=== PATIENT | male | born 1945 | race Asian ===

== ENCOUNTER 2020-06-23 11:14 | Inpatient (IN) | payer OTHER ==
[2020-06-23 11:20] VITALS: BMI 26.8
--- NOTE | 2020-06-23 11:52 | PDOC ---
History of Present Illness - General Chief Complaint: Pain Stated Complaint: SENT BY DOC Time Seen by Provider: 06/23/20 11:51 - History of Present Illness Initial Comments: 06/23/20 12:30 HPI 74y/o M hx of NIDDM, ESRD (peritoneal dialysis), HTN, acid reflux, presents to the ED with 1 wk of abdominal pain. Pain is intermittent sharp pain and exacerbated by bowel movements, or eating food. Pt reports he has been feeling constipated, and passed watery stool after an enema yesterday with bright red blood. He denies any fevers, chills, nausea, vomiting, dark tarry stools. PMHx: as noted above ROS: as noted SHx: Denies Etoh, IVDA, tobacco use Allergies: NKDA Propagation Worker: Dr. Jessica Corey ROS: GENERAL/CONSTITUTIONAL: No fever or chills. No weakness. HEAD, EYES, EARS, NOSE AND THROAT: No change in vision. No ear pain or discharge. No sore throat. CARDIOVASCULAR: No chest pain or shortness of breath RESPIRATORY: No cough, wheezing, or hemoptysis. GASTROINTESTINAL: No nausea, vomiting. + constipation GENITOURINARY: No dysuria, frequency, or change in urination. MUSCULOSKELETAL: No joint or muscle swelling or pain. No neck or back pain. SKIN: No rash NEUROLOGIC: No headache, vertigo, loss of consciousness, or change in strength/sensation. ENDOCRINE: No increased thirst. No abnormal weight change HEMATOLOGIC/LYMPHATIC: No anemia, easy bleeding, or history of blood clots. ALLERGIC/IMMUNOLOGIC: No hives or skin allergy. PE: GENERAL: Awake, alert, and fully oriented, in no acute distress HEAD: No signs of trauma, normocephalic, atraumatic EYES: PERRLA, EOMI, sclera anicteric, conjunctiva clear ENT: Auricles normal inspection, hearing grossly normal, nares patent, oropharynx clear without exudates. Moist mucosa NECK: Normal ROM, supple, no lymphadenopathy, JVD, or masses LUNGS: No distress, speaks full sentences, clear to auscultation bilaterally HEART: Regular rate and rhythm, normal S1 and S2, no murmurs, rubs or gallops, peripheral pulses normal and equal bilaterally. ABDOMEN: Soft, nontender, normoactive bowel sounds. No guarding, no rebound. No masses. peritoneal dialysis catheter in RLQ EXTREMITIES : Normal inspection, Normal range of motion, no edema. No clubbing or cyanosis NEUROLOGICAL: Cranial nerves II through XII grossly intact. Normal speech, no focal sensorimotor deficits SKIN: Warm, Dry, normal turgor, no rashes or lesions noted MDM DDx including but not limited to: mesenteric ischemia, diverticulitis, constipation, Workup: labs, abdomen ct, ekg, - EKG: sinus rhythm with premature atrial complexes. qtc 423, qrs 86 pr 166, HR 86 t wave inversion, v4, v5, v6, no priors for comparison. ED course meds: Re-assessment: 06/23/20 12:36 06/23/20 13:18 Past History - Medical History Allergies/Adverse Reactions: Allergies Allergy/AdvReac Type Severity Reaction Status Date / Time No Known Allergies Allergy Verified 06/23/20 11:20 COPD: No Diabetes: Yes Dialysis: Yes (PERITONEAL) GI Disorders: Yes (GASTRITIS) HTN: Yes Hypercholesterolemia: Yes - Immunization History Immunization Up to Date: Yes - Psycho-Social/Smoking History Smoking History: Never smoked Have you smoked in the past 12 months: No Information on smoking cessation initiated: No - Substance Abuse Hx (Audit-C & DAST Scrn) How often the patient has a drink containing alcohol: Never Score: In Men: 4 or > Positive; In Women: 3 or > Positive: 0 Screen Result (Pos requires Nsg. Audit-10AR): Negative In the last yr the pt used illegal drug/Rx for NonMed reason: No Score: Yes response is considered Positive: 0 Screen Result (Positive result requires Nsg. DAST-10): Negative *Physical Exam - Vital Signs Last Vital Signs Temp Pulse Resp BP Pulse Ox 97.4 F L 96 H 18 114/64 99 06/23/20 11:15 06/23/20 11:15 06/23/20 11:15 06/23/20 11:15 06/23/20 11:15 ED Treatment Course - LABORATORY CBC & Chemistry Diagram: 06/23/20 13:05 06/23/20 13:05 Discharge - Follow up/Referral Referrals: Maria Esther Talavera MD [Primary Care Provider] - - Patient Discharge Instructions - Post Discharge Activity
--- NOTE | 2020-06-23 12:50 | PDOC ---
Documentation entered by Roberto Hurst SCRIBE, acting as scribe for Alice Acuna MD. Alice Acuna MD: This documentation has been prepared by the jakeibe, Roberto Hurst SCRIBE, under my direction and personally reviewed by me in its entirety. I confirm that the documentation accurately reflects all work, treatment, procedures, and medical decision making performed by me. Attending Attestation - Resident Resident Name: Ty Garcia - ED Attending Attestation I have performed the following: I have examined & evaluated the patient, The case was reviewed & discussed with the resident, I agree w/resident's findings & plan, Exceptions are as noted - HPI HPI: 06/23/20 12:41 The patient is a 74 year old male with a significant past medical history of ESRD (on peritoneal dialysis), NIDDM, HTN, GERD and gastritis who presents to the emergency department for evaluation of abdominal pain that began one week ago. The patient described pain as intermittent, sharp, adn worsened with eating or having bowel movements. He endorses feeling constipated but had an episode of diarrhea with bright red blood yesterday after having an enema. The patient denies chest/back pain, cough, and shortness of breath. Denies fever, chills, nausea, vomiting, and/or any symptoms. Denies any other symptoms. Allergies: NKA Social Hx: None reported Surgical Hx: None reported PCP: Maria Esther Talavera MD Geriatrician: Dr. Jessica Corey - Physicial Exam PE: 06/23/20 11:57 GENERAL: Awake, alert, and fully oriented, in no acute distress HEAD: No signs of trauma EYES: PERRLA, EOMI, sclera anicteric, conjunctiva clear ENT: Auricles normal inspection, hearing grossly normal, nares patent, oropharynx clear without exudates. Moist mucosa NECK: Normal ROM, supple, no lymphadenopathy, JVD, or masses LUNGS: Breath sounds equal, clear to auscultation bilaterally. No wheezes, and no crackles HEART: Regular rate and rhythm, normal S1 and S2, no murmurs, rubs or gallops ABDOMEN: Soft, +RLQ tenderness with guarding, normoactive bowel sounds. No rebound. No masses. +Peritoneal dialysis catheter to the R mid-abdomen, no surrounding skin changes. EXTREMITIES: Normal range of motion, no edema. No clubbing or cyanosis. No cords, erythema, or tenderness NEUROLOGICAL: Cranial nerves II through XII grossly intact. Normal speech. Motor and sensation grossly intact. SKIN: Warm, Dry, normal turgor, no rashes or lesions noted. RECTAL: No external lesions, no palpable internal hemorrhoids. No stool in the vault. - Medical Decision Making 06/23/20 12:50 No signs of SBP on exam. However, given the RLQ tenderness, as well as age and multiple medical issues, will do labs, CT a/p to further evaluate. Discharge - Discharge Information Problems reviewed: Yes Clinical Impression/Diagnosis: Lactic acid blood increased Condition: Stable - Follow up/Referral - Patient Discharge Instructions - Post Discharge Activity
[2020-06-23 13:18] LABS: BASO % 1.1 % (0-2.0); EOS % 2.9 % (0-4.5); HEMATOCRIT 30.9 % (35.4-49); HEMOGLOBIN 9.8 GM/dL (11.7-16.9); LYMPH % 16.9 % (8-40); MCH 21.4 pg (25.7-33.7); MCHC 31.8 g/dl (32.0-35.9); MEAN CELL VOLUME 67.2 fl (80-96); MONO % 8.1 % (3.8-10.2); PLATELET COUNT 205 K/MM3 (134-434); RDW 16.6 % (11.9-15.9); WHITE BLOOD COUNT 7.5 K/mm3 (4.0-10.0)
[2020-06-23 13:28] LABS: INR 1.08 (0.83-1.09); PROTHROMBIN TIME (PATIENT) 12.7 SEC (9.7-13.0)
[2020-06-23 13:30] LABS: ACTIVATED PTT 28.4 SECONDS (25.2-36.5)
[2020-06-23 13:38] LABS: ALBUMIN 3.2 g/dl (3.4-5.0); BILIRUBIN,TOTAL 0.4 mg/dL (0.2-1); BLOOD UREA NITROGEN 70.1 mg/dL (7-18); CALCIUM 8.3 mg/dL (8.5-10.1); POTASSIUM 3.6 mmol/L (3.5-5.1); TOT PROT 7.2 g/dl (6.4-8.2)
[2020-06-23 13:45] LABS: CREATININE 14.3 mg/dL (0.55-1.3)
[2020-06-23 14:11] LABS: ANISOCYTOSIS 1+; MACROCYTOSIS 0; PLATELET ESTIMATE NORMAL; TEAR DROP CELLS 1+
--- NOTE | 2020-06-23 15:52 | EKG ---
Test Reason : Blood Pressure : / mmHG Vent. Rate : 086 BPM Atrial Rate : 086 BPM P-R Int : 166 ms QRS Dur : 086 ms QT Int : 354 ms P-R-T Axes : 028 039 079 degrees QTc Int : 423 ms SINUS RHYTHM WITH PREMATURE ATRIAL COMPLEXES ABNORMAL ECG NO PREVIOUS ECGS AVAILABLE Confirmed by Quang Luke ([id number]) on 06/23/2020 3:52:23 PM Referred By: Confirmed By:Quang Luke
[2020-06-23] MEDS ORDERED: SODIUM CHLORIDE 1,000 ML IV SCH (16:00)
[2020-06-23] MEDS: SODIUM CHLORIDE 1,000 ML IV SCH (16:46)
[2020-06-23] MEDS: PERITONEAL DIALYSIS 2.5% SOLN 2,500 ML IP SCH (18:46)
[2020-06-23 20:08] LABS: EPI CELLS 2 /uL (0-25.1); HYALINE CASTS 0 /uL (0-3.1); PH,URINE >= 9.0 (5.0-8.0); URINE APPEARANCE CLEAR; URINE BACTERIA 9 /uL (0-1359); URINE BILIRUBIN NEGATIVE (NEGATIVE); URINE COLOR YELLOW; URINE GLUCOSE (UA) 2+ (NEGATIVE); URINE KETONE NEGATIVE (NEGATIVE); URINE LEUK ESTERASE NEGATIVE (NEGATIVE); URINE NITRITE NEGATIVE (NEGATIVE); URINE PROTEIN 2+ (NEGATIVE); URINE RBC 4 /uL (0-23.9); URINE UROBILINOGEN 0.2 mg/dL (0.2-1.0); URINE WBC 8 /uL (0-25.8)
[2020-06-24] MEDS: SODIUM CHLORIDE 1,000 ML IV SCH (00:12)
[2020-06-24] MEDS: PERITONEAL DIALYSIS 2.5% SOLN 2,500 ML IP SCH ×2 (01:05→08:34)
[2020-06-24] MEDS ORDERED: DOCUSATE SODIUM 100 MG CAPSULE (FP) PO PRN (09:30)
--- NOTE | 2020-06-24 09:40 | CON.NEP ---
Consult Consult Specialty:: Nephrology Referred by:: ED Reason for Consultation:: ESRD on PD with Abd pain - History of Present Illness Chief Complaint: Abdominal pain History of Present Illness: This is a 74 year old [place] male with history of ESRD on PD, hypertension, NIDDM, GERD who presented with complaints of abdominal pain. He does PD nightly via cycler. Denies seeing cloudy PD fluid. Denies any fever, chills, cough, nausea, vomiting or diarrhea. Does endorse having some constipation and rectal pain with his bowel movements. No flank pain. - History Source History Provided By: Patient, Family Member Limitations to Obtaining History: No Limitations - Smoking History Smoking history: Former smoker Have you smoked in the past 12 months: No Home Medications - Allergies Allergies/Adverse Reactions: Allergies Allergy/AdvReac Type Severity Reaction Status Date / Time No Known Allergies Allergy Verified 06/23/20 11:20 Family Medical History Family History: Unremarkable Review of Systems - Review of Systems Constitutional: reports: No Symptoms Eyes: reports: No Symptoms HENT: reports: No Symptoms Neck: reports: No Symptoms Cardiovascular: reports: No Symptoms Respiratory: reports: No Symptoms Gastrointestinal: reports: No Symptoms Genitourinary: reports: No Symptoms Musculoskeletal: reports: No Symptoms Endocrine: reports: No Symptoms Nephrology Consult - Height Height: 5 ft 6 in - Weight Weight: 75.466 kg - BMI Body Mass Index (BMI): 26.8 - Lab Results CBC,BMP: CBC, BMP 06/23/20 13:05 06/23/20 13:05 Anion Gap: Anion Gap Anion Gap 16 MMOL/L (8-16) 06/23/20 13:05 - Imaging Cat Scan: Report Reviewed - Physical Examination Vital Signs: Vital Signs Temperature 98.5 F 06/24/20 06:27 Pulse Rate 76 06/24/20 06:27 Respiratory Rate 18 06/24/20 06:27 Blood Pressure 112/50 L 06/24/20 06:27 O2 Sat by Pulse Oximetry (%) 99 06/24/20 06:27 Constitutional: Yes: Well Nourished, No Distress, Calm Eyes: Yes: Conjunctiva Clear HENT: Yes: Atraumatic, Normocephalic Neck: Yes: Supple Cardiovascular: Yes: Regular Rate and Rhythm. No: Murmur, Rub Respiratory: Yes: Regular, CTA Bilaterally. No: Diminished, Rales, Rhonchi, SOB Gastrointestinal: Yes: Soft, Other (PD catheter site clean). No: Tenderness Renal/: No: Bladder Distention Extremities: No: Cold, Cool, Cyanosis Edema: No Neurological: Yes: Alert, Oriented Assessment/Plan 4 year old [place] male with history of ESRD on PD, hypertension, NIDDM, GERD who presented with complaints of abdominal pain. 1. Abdominal pain r/o peritonitis in PD patient 2. ESRD on HD 3. Hypertension 4. NIDDM 5. GERD CT of the Abdomen and pelvis w/o overt pathology. Check PD fluid cell count and culture. If cell count is not indicative of peritonitis can anticipate discharge home. Continue PD with manual exchanges every 6 hours. Start Colace and protonix PO Check finger sticks Case discussed with primary doctor and nurse. Thank you Tone Anderson DO
[2020-06-24] MEDS ORDERED: PANTOPRAZOLE 40 MG TABLET PO SCH (10:00)
--- NOTE | 2020-06-24 11:40 | HP ---
Admitting History and Physical - Primary Care Physician PCP: Jessica Carbajal - Admission Chief Complaint: abd pain History of Present Illness: - History of Present Illness Initial Comments: 06/23/20 12:30 HPI 74y/o M hx of NIDDM, ESRD (peritoneal dialysis), HTN, acid reflux, presents to the ED with 1 wk of abdominal pain. Pain is intermittent sharp pain and exacerbated by bowel movements, or eating food. Pt reports he has been feeling constipated, and passed watery stool after an enema yesterday with bright red blood. He denies any fevers, chills, nausea, vomiting, dark tarry stools. PMHx: as noted above ROS: as noted SHx: Denies Etoh, IVDA, tobacco use Allergies: NKDA Clothing Worker: Dr. Jessica Corey Pt seen by me today He had PD done-- peritoneal fluid studies sent and pending He denies pain No nausea CT abd-- no SBO no bm today no dizziness History Source: Patient, Family Member Limitations to Obtaining History: No Limitations - Past Medical History Renal/: Yes: Hemodialysis - Smoking History Smoking history: Former smoker Have you smoked in the past 12 months: No Home Medications - Allergies Allergies/Adverse Reactions: Allergies Allergy/AdvReac Type Severity Reaction Status Date / Time No Known Allergies Allergy Verified 06/23/20 11:20 Family Medical History Family History: Unremarkable Review of Systems - Review of Systems Constitutional: denies: Chills, Fever Gastrointestinal: reports: Abdominal Pain, Dysphagia, Nausea. denies: Diarrhea, Melena, Vomiting, Vomiting Blood Physical Examination Vital Signs: Vital Signs Temperature 98.5 F 06/24/20 06:27 Pulse Rate 76 06/24/20 06:27 Respiratory Rate 18 06/24/20 06:27 Blood Pressure 112/50 L 06/24/20 06:27 O2 Sat by Pulse Oximetry (%) 99 06/24/20 06:27 Constitutional: Yes: No Distress, Calm Cardiovascular: Yes: Regular Rate and Rhythm Respiratory: Yes: CTA Bilaterally Gastrointestinal: Yes: Normal Bowel Sounds, Soft, Abdomen, Obese. No: Tenderness Edema: No Labs: CBC, BMP 06/23/20 13:05 06/23/20 13:05 Imaging - Results Chest X-ray: Image Reviewed Cat Scan: Report Reviewed EKG: Image Reviewed Problem List - Problems (1) Peritoneal dialysis catheter in place Code(s): Z99.2 - DEPENDENCE ON RENAL DIALYSIS (2) Abdominal pain Code(s): R10.9 - UNSPECIFIED ABDOMINAL PAIN (3) Gastritis Code(s): K29.70 - GASTRITIS, UNSPECIFIED, WITHOUT BLEEDING (4) Lactic acid blood increased Code(s): R79.89 - OTHER SPECIFIED ABNORMAL FINDINGS OF BLOOD CHEMISTRY (5) GI bleed Code(s): K92.2 - GASTROINTESTINAL HEMORRHAGE, UNSPECIFIED Assessment/Plan PLAN one episode of GI bleed slight anemia peritineal fluid sent and pending -- cytology pt is adamant to go home AMA he signed AMA papers may see GI as outpt spoke with daughter Jania sandhu PPI
--- NOTE | 2020-06-24 11:46 | DS ---
Physical Examination Vital Signs: Vital Signs Temperature 98.5 F 06/24/20 06:27 Pulse Rate 76 06/24/20 06:27 Respiratory Rate 18 06/24/20 06:27 Blood Pressure 112/50 L 06/24/20 06:27 O2 Sat by Pulse Oximetry (%) 99 06/24/20 06:27 Labs: CBC, BMP 06/23/20 13:05 06/23/20 13:05 Discharge Summary Problems reviewed: Yes Reason For Visit: END STAGE RENAL FAILURE ON DIALYSIS, PETIONEAL KRISTY Current Active Problems Abdominal pain (Acute) GI bleed (Acute) Gastritis (Acute) Lactic acid blood increased (Acute) Peritoneal dialysis catheter in place (Acute) Hospital Course: see H and P Condition: Stable - Instructions Referrals: Maria Esther Talavera MD [Primary Care Provider] - Disposition: AGAINST MEDICAL ADVICE
[2020-06-24 12:17] VITALS: BP 112/70; PULSE 93; TEMP 97.8
[2020-06-24 14:06] LABS: BF WBC & OTHER NUCLEATED CELLS 6 /mm3
== END 2020-06-24 13:45 | disposition left against medical advice (07) | DRG 377 ==
LOC: JER 11:14 → JERBED 15:34 → J7W 22:50
PROVIDERS: ADMIT Internal Medicine; ATTEND Internal Medicine
PROC: 3E1M39Z Irrigation of Peritoneal Cavity using Dialysate, Percutaneous Approach (ICD-10-PCS; principal; 2020-06-23)
DX: K92.2 Gastrointestinal hemorrhage, unspecified (principal); N18.6 End stage renal disease; I12.0 Hypertensive chronic kidney disease with stage 5 chronic kidney disease or end stage renal disease; R10.9 Unspecified abdominal pain; K29.70 Gastritis, unspecified, without bleeding; R79.89 Other specified abnormal findings of blood chemistry; Z99.2 Dependence on renal dialysis; E11.22 Type 2 diabetes mellitus with diabetic chronic kidney disease; K21.9 Gastro-esophageal reflux disease without esophagitis
CPT/HCPCS: 36415; 71045-TC-FY; 74176-TC; 80053; 81003; 82272; 82962; 83605; 85025; 85610; 85730; 87070; 87075; 87205; 93005; 93010; 99285-25; U0003